=== PATIENT | female | born 1975 | race Two or more races ===

== ENCOUNTER → 2022-12-28 13:59 | Outpatient (REF) | payer OTHER, SELFPAY ==
--- NOTE | 2022-12-28 14:06 | CA_ITS ---
Transthoracic Echocardiogram Patient (Last, First, Middle): Caitlin Campbell, Gender: Female Date of : 1975 Age: 47 Procedure Date: 12/28/2022 Procedure Type: Transthoracic Echocardiogram Location: [place] Height: 175.26 cm Weight: 71.67 kg BSA: 1.87 m2 Heart Rate: bpm BP: 100 / 62 mmHg Baseball Glove Stuffer: TO Referring MD: Ame Baron NP Neon Electrician: Pete Mar MD Symptoms: ABNORMAL EKG R94.31 Study Quality: Adequate ECG Rhythm: Sinus Conclusions: - Essentially normal study Findings Left Ventricle Normal left ventricular size, thickness, and systolic function. The visually estimated ejection fraction is between 55-60%. Diastolic function is normal for age. Peak GLS is -19.6%, within normal limits. Right Ventricle Normal right ventricular cavity size and systolic function. Atria Both atria are normal in size. There is no evidence of interatrial shunt. Aortic Valve Normal aortic valve structure and function. There is no aortic valve stenosis. There is no aortic valve regurgitation. Mitral Valve Normal mitral valve structure and function. There is trace mitral valve regurgitation. There is no mitral valve stenosis. Pulmonic Valve The pulmonic valve is likely normal. Tricuspid Valve Normal tricuspid valve structure. There is mild tricuspid valve regurgitation. The right ventricular systolic pressure is normal. The right ventricular systolic pressure is 30 mmHg. Normal right atrial pressure. There is no evidence of pulmonary hypertension. Great Vessels All visible segments of the aorta are normal in size. The pulmonary artery was not well visualized. Venous The inferior vena cava is normal in size and collapses greater than 50% with inspiration. Pericardium/Pleural There is no evidence of pericardial effusion. Prior Study Comparison No prior study available for comparison. Measurements 2D Linear Measurements IVSd: 1.00 0.6-0.9/0.6-1.0 cm LVIDd: 4.20 3.9-5.3/4.2-5.9 cm LVIDd Index: 2.25 2.4-3.2/2.2-3.1 cm/m2 LVIDs: 2.90 2.0-3.6 cm LVPWd: 0.60 0.7-1.1 cm LA Diam: 3.40 2.7-3.8/3.0-4.0 cm LAIDs Index: 1.82 1.5-2.3 cm/m2 LV Mass: 125.86 67-162/88-224 g LV Mass Index: 67.31 43-95/49-115 g/m2 LVOT Diam: 2.30 3.0+(-)1.3 cm 2D Systolic Function EF 4C: 57.30 >55% EF 2C: 63.10 >55% EF BiP: 59.90 >55% Mitral Valve MV Pk E: 0.87 MV PK A: 0.42 MV Decel Time: 217.00 E/A: 2.10 E'Lateral: 12.30 E'Medial: 12.40 E/E' Med: 7.00 E/E' Lat: 7.10 PHT: 64.00 MVA PHT: 3.44 Decel Yolo: 4.03 Aortic Valve AoV Pk Jesús: 1.23 AoV Mn Jesús: 0.76 AoV VTI: 0.25 AoV Pk Grad: 6.00 Aov Mn Grad: 3.00 EBONI Cont.VTI: 3.12 LVOT LVOT Pk Jesús: 0.86 LVOT Mn Jesús: 0.54 LVOT VTI: 0.19 LVOT Pk Grad: 3.00 LVOT Mn Grad: 1.00 LVOT Diam: 2.30 LVOT Area: 4.15 Diastolic Function MV Pk E: 0.87 MV Pk A: 0.42 E/A: 2.10 E'Medial: 12.40 E/E' Med: 7.00 E' Laterial: 12.30 E/E' Lat: 7.10 Right Ventricle TAPSE (mm): 20.80 TVS' Jesús: 10.90 Tricuspid Valve TR Pk Jesús: 2.35 TR Pk Grad: 22.00 RA Press: 8.00 RVSP: 30.00 Great Vessels Aorta Sinus of Valsalva: 3.60 2.0-3.[address] [place]: 2.90 1.7-3.4 cm Ao Asc: 3.30 2.1-3.4 cm Updated in Other Vendor System with Status of Final Pete Mar MD electronically signed on 12/29/2022 1:16:43 PM with status of Final
== END ==
LOC: HO.CARD 13:59
PROVIDERS: PCP Nurse Practitioner Family; Visit Provider Nurse Practitioner Family
DX: R94.31 Abnormal electrocardiogram [ECG] [EKG] (principal)
CPT/HCPCS: 93306; 93356

== ENCOUNTER → 2022-12-28 14:06 | Outpatient (BNV) | payer OTHER, SELFPAY | PROVIDERS: PCP Nurse Practitioner Family; Visit Provider Internal Medicine Cardiovascular Disease | DX: I36.1 Nonrheumatic tricuspid (valve) insufficiency (principal); R94.31 Abnormal electrocardiogram [ECG] [EKG] | CPT/HCPCS: 93306 ==